=== PATIENT | male | born 1975 | race Caucasian/White ===

== ENCOUNTER 2021-02-18 02:44 | Outpatient (CLI) | payer OTHER, SELFPAY ==
[2021-02-18 08:58] LABS: HCT 45.6 % (40.0-50.0); HGB 15.1 g/dL (13.5-17.5); MCH 28.9 pg (27.0-33.0); MCHC 33.1 % (32.0-36.0); MCV 87.4 fL (80-95); MPV 8.8 fL (8.0-11.0); Platelet Count 228 10^3/uL (130-400); RBC 5.22 10^6/uL (4.36-5.78); RDW 11.6 % (11.8-14.1); WBC 6.44 10^3/uL (4.4-10.8)
[2021-02-18 10:49] LABS: ALT 41 U/L (16-63); AST 15 U/L (15-37); Albumin 4.1 g/dL (3.4-5.0); Alkaline Phosphatase 74 U/L (46-116); Anion Gap 10.6 mmol/L (3-11); BUN 16 mg/dL (7-18); Bilirubin, Total 0.5 mg/dL (0.2-1.0); CO2 27.4 mmol/L (21.0-32.0); Calculated LDL 118 mg/dL (<100); Chloride 105 mmol/L (98-107); Cholesterol 187 mg/dL (<200); Glucose 107 mg/dL (74-106); HDL Cholesterol 57 mg/dL (40-60); Potassium 4.4 mmol/L (3.5-5.1); Sodium 143 mmol/L (136-145); TSH (W/Ref FT4) 2.55 uIU/mL (0.36-3.74); Triglyceride 63 mg/dL (<150)
== END 2021-02-18 02:45 | disposition home or self-care (01) ==
LOC: LBO 02:44
PROVIDERS: PCP Family Medicine; Visit Provider Family Medicine
DX: Z00.00 Encounter for general adult medical examination without abnormal findings (principal)
CPT/HCPCS: 36415; 80053; 80061; 85027; 84443

== ENCOUNTER 2022-05-16 11:24 | Outpatient (CLI) | payer BC, SELFPAY ==
[2022-05-16 12:35] LABS: Hemoglobin A1C 5.8 % (<5.7)
[2022-05-16 12:42] LABS: ALT 41 U/L (16-63); AST 18 U/L (15-37); Albumin 4.4 g/dL (3.4-5.0); Alkaline Phosphatase 82 U/L (46-116); Anion Gap 11.7 mmol/L (3-11); BUN 14 mg/dL (7-18); Bilirubin, Total 0.4 mg/dL (0.2-1.0); CO2 26.3 mmol/L (21.0-32.0); Chloride 103 mmol/L (98-107); Estimated GFR 93.42 (mL/min/1.73m2); Glucose 101 mg/dL (74-106); Potassium 3.5 mmol/L (3.5-5.1); Sodium 141 mmol/L (136-145); Total Protein 7.8 g/dL (6.4-8.2)
[2022-05-17 09:47] LABS: Lyme Ab w Rflx to Lyme Confirm Negative (Negative)
[2022-05-19 17:25] LABS: Anaplasma phagocytophilum Negative (Negative); B. miyamotoi PCR Negative (Negative); Babesia divergens/MO-1 Negative (Negative); Babesia duncani Negative (Negative); Babesia microti Negative (Negative); Ehrlichia chaffeensis Negative (Negative); Ehrlichia ewingii/canis Negative (Negative); Ehrlichia muris eauclairensis Negative (Negative)
== END 2022-05-16 11:25 | disposition home or self-care (01) ==
LOC: LOS 11:25
PROVIDERS: PCP Family Medicine; Referring Provider Family Medicine; Visit Provider Family Medicine
DX: Z00.00 Encounter for general adult medical examination without abnormal findings (principal); W57.XXXA Bitten or stung by nonvenomous insect and other nonvenomous arthropods, initial encounter; E11.9 Type 2 diabetes mellitus without complications
CPT/HCPCS: 36415; 80053; 87798; 83036; 86618

== ENCOUNTER 2023-07-06 08:41 | Outpatient (CLI) | payer OTHER, SELFPAY ==
[2023-07-06 10:41] LABS: Hemoglobin A1C 5.7 % (<5.7)
[2023-07-06 10:46] LABS: ALT 34 U/L (16-63); AST 13 U/L (15-37); Albumin 4.6 g/dL (3.4-5.0); Alkaline Phosphatase 83 U/L (46-116); Anion Gap 11.6 mmol/L (3-11); BUN 22 mg/dL (7-18); Bilirubin, Total 0.5 mg/dL (0.2-1.0); CO2 26.4 mmol/L (21.0-32.0); CREATININE 1.1 mg/dL (0.70-1.30); Calcium 10.1 mg/dL (8.5-10.1); Calculated LDL 123 mg/dL (<100); Chloride 103 mmol/L (98-107); Cholesterol 203 mg/dL (<200); Estimated GFR 82.29 (mL/min/1.73m2); Glucose 128 mg/dL (74-106); HDL Cholesterol 68 mg/dL (40-60); Potassium 4.2 mmol/L (3.5-5.1); Sodium 141 mmol/L (136-145); Total Protein 8.1 g/dL (6.4-8.2); Triglyceride 64 mg/dL (<150)
== END 2023-07-06 08:42 | disposition home or self-care (01) ==
LOC: LOS 08:41
PROVIDERS: PCP Family Medicine; Referring Provider Family Medicine; Visit Provider Family Medicine
DX: Z00.00 Encounter for general adult medical examination without abnormal findings (principal)
CPT/HCPCS: 36415; 80053; 80061; 83036

== ENCOUNTER 2024-11-01 00:43 | Outpatient (CLI) | payer OTHER, SELFPAY ==
[2024-11-01 12:31] LABS: Hemoglobin A1C 6.1 % (<5.7)
[2024-11-01 12:38] LABS: ALT 42 U/L (16-63); AST 16 U/L (15-37); Albumin 4.2 g/dL (3.4-5.0); Alkaline Phosphatase 75 U/L (46-116); Anion Gap 10.4 mmol/L (3-11); BUN 21 mg/dL (7-18); Bilirubin, Total 0.5 mg/dL (0.2-1.0); CO2 27.6 mmol/L (21.0-32.0); CREATININE 0.8 mg/dL (0.70-1.30); Calcium 9.2 mg/dL (8.5-10.1); Calculated LDL 144 mg/dL (<100); Chloride 101 mmol/L (98-107); Cholesterol 225 mg/dL (<200); Estimated GFR 107.82 (mL/min/1.73m2); Glucose 122 mg/dL (74-106); HDL Cholesterol 60 mg/dL (>or=40); Potassium 3.7 mmol/L (3.5-5.1); Sodium 139 mmol/L (136-145); Total Protein 7.5 g/dL (6.4-8.2); Triglyceride 105 mg/dL (<150)
== END 2024-11-01 00:44 | disposition home or self-care (01) ==
LOC: LOS 00:43
PROVIDERS: PCP Family Medicine; Visit Provider Family Medicine
DX: E11.9 Type 2 diabetes mellitus without complications (principal); Z00.00 Encounter for general adult medical examination without abnormal findings; I10 Essential (primary) hypertension
CPT/HCPCS: 36415; 80053; 80061; 83036